=== PATIENT | male | born 1950 | race Caucasian/White ===

== ENCOUNTER → 2020-06-10 | Outpatient (CLI) | payer OTHER | LOC: SJCVCIMAG 06-03 11:23 | PROVIDERS: ATTEND Internal Medicine Cardiovascular Disease | DX: I65.23 Occlusion and stenosis of bilateral carotid arteries (principal); I25.10 Atherosclerotic heart disease of native coronary artery without angina pectoris; I10 Essential (primary) hypertension; E78.5 Hyperlipidemia, unspecified ==

== ENCOUNTER → 2021-07-27 | Outpatient (CLI) | payer OTHER ==
[~2021-07-27] VITALS: Ht 177.8 cm; Wt 88.5 kg
[~2021-07-27] MED LIST: ALPRAZOLAM 0.0.25 M1 PO; ASA81BEC PO; COENZYME Q10100 M2 PO; FINASTERIDE1 MG PO; FISH OIL 1,0001 EAC9 PO; LIPITOR10 MG PO; MELATONIN3 M1 PO; PERINDOPRIL ERBU8 MG PO; PLAVIX 75 MG TA75 MG PO; VIAGRA50 MG PO; VITAMIN D3125 MC2 PO
[2021-07-27 13:04] VITALS: BP 177/92
[2021-07-27 13:23] LABS: ABSOLUTE NEUTROPHILS 3.3 thou/uL (1.4-8.2); BASOPHILS 0.7 % (0.0-2.0); EOSINOPHILS 1.9 % (0.0-3.0); HEMATOCRIT 44.7 % (42.0-52.0); HEMOGLOBIN 14.7 gm/dL (14.0-18.0); LYMPHOCYTES 31.7 % (24.0-44.0); MCH 29.3 pg (26.0-34.0); MCHC 32.9 g/dL (28.0-37.0); MCV 89.2 fL (80.0-100.0); MONOCYTES 8.1 % (1.0-8.0); PLATELET COUNT 231 thou/uL (150-400); POLYS 57.6 % (36.0-66.0); RBC 5.01 mil/uL (4.50-6.00); RDW 14.1 % (10.5-14.5); WBC 5.7 thou/uL (4.0-11.0)
[2021-07-27 13:32] LABS: CALCIUM 9.2 mg/dL (8.5-10.1)
== END | disposition home or self-care (01) ==
LOC: CATH 08:47
PROVIDERS: ATTEND Nuclear Medicine Nuclear Cardiology
DX: I87.1 Compression of vein (principal); I87.323 Chronic venous hypertension (idiopathic) with inflammation of bilateral lower extremity; R22.43 Localized swelling, mass and lump, lower limb, bilateral; M79.604 Pain in right leg; M79.605 Pain in left leg; I10 Essential (primary) hypertension; I25.10 Atherosclerotic heart disease of native coronary artery without angina pectoris; K21.9 Gastro-esophageal reflux disease without esophagitis; E78.5 Hyperlipidemia, unspecified; J45.909 Unspecified asthma, uncomplicated; G47.33 Obstructive sleep apnea (adult) (pediatric); I73.9 Peripheral vascular disease, unspecified; Z98.890 Other specified postprocedural states; Z79.899 Other long term (current) drug therapy; Z87.891 Personal history of nicotine dependence

== ENCOUNTER → 2021-11-25 | Outpatient (CLI) | payer OTHER | LOC: SJCVCIMAG 08:01 | PROVIDERS: ATTEND Nuclear Medicine Nuclear Cardiology | DX: I82.811 Embolism and thrombosis of superficial veins of right lower extremity (principal); I87.2 Venous insufficiency (chronic) (peripheral); I25.10 Atherosclerotic heart disease of native coronary artery without angina pectoris; K21.9 Gastro-esophageal reflux disease without esophagitis; G47.33 Obstructive sleep apnea (adult) (pediatric); E78.00 Pure hypercholesterolemia, unspecified; I10 Essential (primary) hypertension; Z72.89 Other problems related to lifestyle; Z87.891 Personal history of nicotine dependence; Z79.82 Long term (current) use of aspirin; Z79.899 Other long term (current) drug therapy ==